=== PATIENT | male | born 1995 | race Caucasian/White ===

== ENCOUNTER → 2023-09-06 16:17 | Outpatient (CLI) | payer OTHER, SELFPAY ==
--- NOTE | 2023-09-06 | DI.MRI.S_ITS ---
PROCEDURE: MR LUMBAR SPINE WO CON INDICATIONS: Spinal stenosis, lumbar region with neurogenic claudication TECHNIQUE: Noncontrast sagittal T1 spin echo and T2 fast echo, sagittal STIR, and T2 fast spin echo through the lumbar spine. In cases with scoliosis, additional coronal T2 fast spin echo may be performed. COMPARISON: SNO Outside Film, CR, XR LUMBAR SPINE 2 OR 3 VIEWS, 07/08/2023, 10:01. FINDINGS: Image quality: Excellent. Alignment and Curvature: There is normal bony alignment. Bone Marrow: Marrow is of normal overall signal. No acute vertebral body compression fractures. Spinal Cord: Conus medullaris terminates at the L1-L2 level. Visualized cord demonstrates normal signal and size. Paraspinous Soft Tissues: No paravertebral masses. T12-L1: Normal appearance. L1-L2: Normal appearance. L2-L3: Normal appearance. L3-L4: Very mild facet arthropathy. No canal stenosis or foraminal stenosis. L4-L5: Mild facet arthropathy. No canal stenosis or foraminal stenosis. L5-S1: Mild facet arthropathy. No canal stenosis. Moderate bilateral foraminal stenosis. There is mild flattening deformity on the exiting left L5 nerve root. IMPRESSION: 1. Mild multilevel lower lumbar facet arthropathy. 2. No canal stenosis. 3. Moderate bilateral foraminal narrowing at L5-S1. Dictated by: Yosef Winn M.D. on 09/06/2023 at 17:27 Approved by: Yosef Winn M.D. on 09/06/2023 at 17:30
== END ==
PROVIDERS: Referring Provider Orthopaedic Surgery Orthopaedic Surgery of the Spine; Visit Provider Orthopaedic Surgery Orthopaedic Surgery of the Spine
DX: M48.062 Spinal stenosis, lumbar region with neurogenic claudication (principal); M48.07 Spinal stenosis, lumbosacral region; M47.816 Spondylosis without myelopathy or radiculopathy, lumbar region; M47.817 Spondylosis without myelopathy or radiculopathy, lumbosacral region
CPT/HCPCS: 72148

== ENCOUNTER 2023-10-17 20:50 | Emergency (ER) | payer OTHER, SELFPAY ==
[2023-10-17 21:03] VITALS: BP 129/73; PULSE 92; RESP 16; TEMP 37; O2SAT 98; BMI 31.1
--- NOTE | 2023-10-17 21:15 | DI.RAD.S_ITS ---
PROCEDURE: XR ACUTE ABDOMEN SERIES INDICATIONS: constipation/ vomiting. TECHNIQUE: One view chest and two views of the abdomen were acquired. COMPARISON: None. FINDINGS: Surgical changes and devices: None. Chest: Lungs are clear. Heart size is normal. No pleural effusions. No pneumoperitoneum. Abdomen: Bowel gas pattern is normal. No suspicious calcifications. Visualized solid organ contours appear normal. Bones: No suspicious bony lesions. IMPRESSION: No acute abnormality. Dictated by: Calvin Little M.D. on 10/17/2023 at 21:39 Approved by: Calvin Little M.D. on 10/17/2023 at 21:39
[2023-10-17 21:44] LABS: Alanine Aminotransferase 18 IU/L (<50); Albumin 4.7 g/dL (3.5-5.0); Albumin Globulin Ratio 1.3 (1.0-2.8); Alkaline Phosphatase 60 U/L (38-126); Aspartate Aminotransferase 23 IU/L (17-59); BUN Creatinine Ratio 17.3 (6-22); Bilirubin Total 0.7 mg/dL (0.2-1.3); Blood Urea Nitrogen 18 mg/dL (9-20); Calcium 9.3 mg/dL (8.4-10.2); Carbon Dioxide 27 mmol/L (22-32); Chloride 101 mmol/L (98-107); Estimated Glomerular Filt Rate > 60 mL/min (>60); Globulin 3.5 g/dL (1.7-4.1); Glucose 103 mg/dL (70-100); HEMOLYSIS < 15 (0-50); Lipase 39 U/L (23-300); Potassium 3.5 mmol/L (3.4-5.1); Sodium 138 mmol/L (137-145); Total Protein 8.2 g/dL (6.3-8.2)
[2023-10-17 21:51] LABS: Add Manual Diff / Slide Review NO; Basophils Absolute Auto 0 /uL (0-100); Basophils Percent Auto 0.3 % (0-2); Eosinophils Absolute Auto 100 /uL (0-450); Eosinophils Percent Auto 0.5 % (2-4); Hematocrit 41.3 % (41-53); Hemoglobin 13.9 g/dL (13.5-17.5); Lymphocytes Absolute Auto 400 /uL (1100-4500); Lymphocytes Percent Auto 3.3 % (25-40); Mean Corpuscular HGB Conc 33.6 % (30-36); Mean Corpuscular Hemoglobin 29.2 PG (26-34); Mean Corpuscular Volume 87.1 fL (80-100); Monocytes Absolute Auto 400 /uL (0-900); Monocytes Percent Auto 3.9 % (3-14); Neutrophils Absolute Auto 10500 /uL (1500-7000); Platelet Count 216 X10^3/uL (150-400); Red Blood Cell Count 4.75 X10^6/uL (4.5-5.9); Red Cell Distribution Width 12.2 % (11.6-14.8); White Blood Cell Count 11.4 X10^3/uL (4.5-11.0)
--- NOTE | 2023-10-18 00:31 | ED_ITS ---
HPI - General Adult General Chief complaint: Abdominal Pain Stated complaint: thinks ABD blockadge Time Seen by Provider: 10/18/23 00:28 Source: patient Mode of arrival: Ambulatory History of Present Illness HPI narrative: 28-year-old gentleman who presents with 48 hours of increasing abdominal pain that he describes as a ?brick sitting in the middle of my belly?. He has not had a bowel movement for 3 days he describes passing no flatus for the last 24 hours and increasing abdominal distention. He is never had any prior abdominal surgeries. He does not describe any overt fevers but today he noticed that he was having episodes of feeling quite hot and then chilled. He describes the abdominal pain as a dull and achy but increasingly severe. He is a low-grade headache and did have 2 episodes of emesis prior to arrival today. He is not complaining of chest pain or palpitations. Related Data Allergies Allergy/AdvReac Type Severity Reaction Status Date / Time No Known Drug Allergies Allergy Verified 10/17/23 21:03 Review of Systems Review of Systems Narrative: Pertinent positive and negative findings as per HPI Patient History Medical History (Updated 10/18/23 @ 04:08 by Nena Wilkins MD) ADHD Social History Smoking Status: Never smoker Smoking Status: Never smoker Substance Use Type: does not use Exam Initial Vital Signs Initial Vital Signs: Vital Signs Temperature 98.6 F 10/17/23 21:03 Pulse Rate 92 H 10/17/23 21:03 Respiratory Rate 16 10/17/23 21:03 Blood Pressure 129/73 10/17/23 21:03 Pulse Oximetry 98 10/17/23 21:03 Oxygen Delivery Method Room Air 10/17/23 21:03 General: Healthy appearing, appears uncomfortable but Able to give a complete and coherent history. Well-nourished well-developed HEENT: Moist mucous membranes, normal sclera with reactive pupils, slightly flushed cheeks Respiratory: Lungs are clear to auscultation, no wheezing no rales no rhonchi. Full and symmetrical air movement Cardiac: Regular rate and rhythm no murmurs no bruits Abdomen: Soft, slightly distended, no bowel tones, no flank pain, no stool in the rectum. Skin: Warm and dry, no rashes Neurologic: Grossly neurologically intact with no obvious asymmetries or abnormalities Extremities: No trauma, well perfused Psych: Cooperative, appropriate insight and affect Course Orders Ordered: ED Orders 10/17/23 21:15 XR acute abdomen series Stat 10/17/23 21:28 Complete Blood Count AUTO DIFF Stat Comprehensive Metabolic Panel Stat Lipase Stat 10/18/23 00:42 CT abdomen pelvis w con Stat 10/18/23 02:19 US abdomen limited Stat Hydromorphone HCl (Hydromorphone 0.5 Mg Inj) 0.5 mg IV Q15MIN PRN PRN Reason: Pain, Ondansetron HCl (Ondansetron 4 Mg Odt) 4 mg PO NOW PRN PRN Reason: Nausea And Vomiting Ondansetron HCl (Ondansetron 4 Mg/2 Ml Inj) 4 mg IV NOW PRN PRN Reason: Nausea And Vomiting Last Admin: 10/18/23 01:06 Dose: 4 mg Documented By: AM Discontinued Medications Ketorolac Tromethamine (Ketorolac 30 Mg/Ml Vial) 15 mg IV NOW ONE Stop: 10/18/23 01:10 Last Admin: 10/18/23 01:22 Dose: 15 mg Documented By: AM Vital Signs Vital signs: Vital Signs - 8 hr 10/17/23 21:03 Temperature 98.6 F Pulse Rate 92 H Respiratory Rate 16 Blood Pressure 129/73 Pulse Oximetry 98 Oxygen Delivery Method Room Air Medical Decision Making Lab Data 10/17/23 21:28 10/17/23 21:28 Labs: Lab Results 10/17/23 Range/Units 21:28 WBC 11.4 H (4.5-11.0) X10^3/uL RBC 4.75 (4.5-5.9) X10^6/uL Hgb 13.9 (13.5-17.5) g/dL Hct 41.3 (41-53) % MCV 87.1 (80-100) fL MCH 29.2 (26-34) PG MCHC 33.6 (30-36) % RDW 12.2 (11.6-14.8) % Plt Count 216 (150-400) X10^3/uL Neut % (Auto) 92.0 H (50-75) % Lymph % (Auto) 3.3 L (25-40) % [place] % (Auto) 3.9 (3-14) % Eos % (Auto) 0.5 L (2-4) % Baso % (Auto) 0.3 (0-2) % Neut # (Auto) 94582 H (8926-3514) /uL Lymph # (Auto) 400 L (3895-5777) /uL [place] # (Auto) 400 (0-900) /uL Eos # (Auto) 100 (0-450) /uL Baso # (Auto) 0 (0-100) /uL Sodium 138 (137-145) mmol/L Potassium 3.5 (3.4-5.1) mmol/L Chloride 101 (98-107) mmol/L Carbon Dioxide 27 (22-32) mmol/L BUN 18 (9-20) mg/dL Creatinine 1.04 (0.66-1.25) mg/dL Estimated GFR > 60 (>60) mL/min BUN/Creatinine Ratio 17.3 (6-22) Glucose 103 H (70-100) mg/dL Calcium 9.3 (8.4-10.2) mg/dL Total Bilirubin 0.7 (0.2-1.3) mg/dL AST 23 (17-59) IU/L ALT 18 (<50) IU/L Alkaline Phosphatase 60 (38-126) U/L Total Protein 8.2 (6.3-8.2) g/dL Albumin 4.7 (3.5-5.0) g/dL Globulin 3.5 (1.7-4.1) g/dL Albumin/Globulin Ratio 1.3 (1.0-2.8) Lipase 39 (23-300) U/L Urine Dip Bedside Urine Glucose Negative Bedside Urine Bilirubin + 1 Bedside Urine Ketone - Negative Urine Specific [place] 1.010 Bedside Urine Occult Blood - Negative Bedside Urine pH 6.0 Bedside Urine Protein - Negative Bedside Urine Urobilinogen - Negative Bedside Urine Nitrite - Negative Bedside Urine Leukocytes - Negative Esterase Point of care testing: Urine Dip Bedside Urine Glucose Negative Bedside Urine Bilirubin + 1 Bedside Urine Ketone - Negative Urine Specific [place] 1.010 Bedside Urine Occult Blood - Negative Bedside Urine pH 6.0 Bedside Urine Protein - Negative Bedside Urine Urobilinogen - Negative Bedside Urine Nitrite - Negative Bedside Urine Leukocytes - Negative Esterase Imaging Data CT scan - abdomen/pelvis: Radiologist's Impression: FINDINGS: Image quality: Diagnostic. Lower Chest: No significant findings. ABDOMEN: Liver: No solid mass. Gallbladder: Small gallstone at the neck of the gallbladder. Biliary ducts: No biliary dilation. Pancreas: No ductal dilation. Spleen: Size is within normal limits. Adrenal Glands: No adrenal nodules. Kidneys and Ureters: No hydronephrosis. No solid mass. No complex renal cystic lesion which requires follow up. Stomach and Bowel: Normal colonic caliber, without significant wall thickening. Normal appendix. Peritoneum: No abnormal intraperitoneal fluid. No free air. Ventral Wall: No hernia. Abdominal Nodes: No retroperitoneal or mesenteric adenopathy by size criteria. Vessels: Aorta and inferior vena cava are normal in size. PELVIS: Pelvic Organs: Unremarkable. Bladder: Unremarkable. Pelvic Nodes: No enlarged lymph nodes. Miscellaneous: No inguinal hernias are seen. Bones: No aggressive osseous abnormality. IMPRESSION: No acute findings within the abdomen or pelvis. Dictated by: Calvin Little M.D. on 10/18/2023 at 1:41 MDM Narrative Medical decision making narrative: CC: Abdominal pain Complicating co-morbidities: ADHD Data collected from: patient Social determinants of health that may influence the patients condition: Currently active [employer] Differential considered: Bowel obstruction, severe constipation, viral syndrome, acute appendicitis Exam documented above, pertinent findings include: Cooperative 28-year-old gentleman with distended abdomen diffusely tender without rebound or guarding. He does not have significant stool in the rectum Lab Test results independently reviewed as above. Pertinent findings: Chemistries are unremarkable Lipase is unremarkable CBC shows mild leukocytosis at 11.4 with neutrophils elevated at 92% Imaging studies independently reviewed: Abdominal x-ray does not show bowel obstruction CT scan shows a small gallstone in the neck of the gallbladder but no mention of significant obstruction or pericholecystic fluid. Remainder of CT is unremarkable with no evidence of acute appendicitis. Ultrasound confirms a small gallstone that is freely mobile with no evidence of pericholecystic fluid or gallbladder wall thickening to suggest acute cholecystitis Treatments: Parenteral Toradol for pain control Re-evaluations: Patient is feeling somewhat better, he does not have an acute surgical abdomen at this time Discussion: 28-year-old gentleman with increasing abdominal pain and bloating. CT scan does not suggest acute appendicitis but did notice a small gallstone at the neck of the gallbladder. Ultrasound shows that there is a small stone but it is mobile and not causing acute problems or acute cholecystitis. There was no evidence of the bowel obstruction. His stomach is quite full any has a moderate amount of stool throughout his colon but is not showing signs of impaction. He does not have stool in the rectal vault. We discussed lab findings, CT and ultrasound findings. Discussed gallstones. Told him that if he did have right upper quadrant abdominal pain particularly after eating fatty meals that he may benefit from a surgical consultation and consideration of elective cholecystectomy. As long as he is pain-free he does not need to take any acute action. We discussed use of MiraLax to see if this might help with some of his bloating and tenderness. At this point questions are answered, he does not need any surgical intervention, additional imaging or lab work and is safe for discharge home Discharge Plan Departure Patient Disposition: Home Clinical Impression: Gallstones Abdominal pain Qualifiers: Abdominal location: generalized Qualified Code(s): R10.84 - Generalized abdominal pain Constipation Qualifiers: Constipation type: unspecified constipation type Qualified Code(s): K59.00 - Constipation, unspecified Instructions: DI for Gallstones Activity Restrictions/Additional Instructions: Thank you for coming in today I did not find any evidence for appendicitis or alternate explanation that would require surgery today. We did find that you have a small gallstone that does not seem to be impacted in the neck of the gallbladder and is not causing acute cholecystitis. If you find that you have right upper quadrant pain particularly associated with eating a high fat meal, you may benefit from consultation with a surgeon to discuss elective cholecystectomy. We also discussed using MiraLax. Using 1 scoop daily to ensure bowel regularity can be helpful in avoiding constipation and pain. If you do not have a bowel movement after an initial dose, please take a 2nd dose this evening, if you still have not had a bowel movement use 2 scoops in the morning and continue in that vein. The worst side effect that you will have is runny nonpainful and non cramping diarrhea. Using 400 mg of ibuprofen (2 [id number] pills) and 1 Tylenol every 6 hours can be very helpful in controlling pain. If you find that you are getting worse or develop any new symptoms, please feel free to return to the emergency department for further evaluation. Referrals: ProviderStacia [Primary Care Provider] - Stand Alone Forms: Patient Portal/API
--- NOTE | 2023-10-18 00:42 | DI.CT.S_ITS ---
PROCEDURE: CT ABDOMEN PELVIS W CON INDICATIONS: abdominal pain TECHNIQUE: After the administration of intravenous contrast, axial sections acquired from the lung bases to the pubic symphysis. Coronal and sagittal reformats were performed. For radiation dose reduction, the following was used: automated exposure control, adjustment of mA and/or kV according to patient size. COMPARISON: None. FINDINGS: Image quality: Diagnostic. Lower Chest: No significant findings. ABDOMEN: Liver: No solid mass. Gallbladder: Small gallstone at the neck of the gallbladder. Biliary ducts: No biliary dilation. Pancreas: No ductal dilation. Spleen: Size is within normal limits. Adrenal Glands: No adrenal nodules. Kidneys and Ureters: No hydronephrosis. No solid mass. No complex renal cystic lesion which requires follow up. Stomach and Bowel: Normal colonic caliber, without significant wall thickening. Normal appendix. Peritoneum: No abnormal intraperitoneal fluid. No free air. Ventral Wall: No hernia. Abdominal Nodes: No retroperitoneal or mesenteric adenopathy by size criteria. Vessels: Aorta and inferior vena cava are normal in size. PELVIS: Pelvic Organs: Unremarkable. Bladder: Unremarkable. Pelvic Nodes: No enlarged lymph nodes. Miscellaneous: No inguinal hernias are seen. Bones: No aggressive osseous abnormality. IMPRESSION: No acute findings within the abdomen or pelvis. Dictated by: Calvin Little M.D. on 10/18/2023 at 1:41 Approved by: Calvin Little M.D. on 10/18/2023 at 1:44
[2023-10-18] MEDS: ONDANSETRON 4 MG/2 ML INJ IV (01:06)
[2023-10-18] MEDS: KETOROLAC 30 MG/ML VIAL 15 MG IV (01:22)
--- NOTE | 2023-10-18 02:19 | DI.US.S_ITS ---
PROCEDURE: US ABDOMEN LIMITED INDICATIONS: CT notes stone at GB neck, eval for cholycystitis TECHNIQUE: Real-time scanning was performed of the abdominal and retroperitoneal organs, with image documentation. COMPARISON: None. FINDINGS: Liver: Liver is normal in size and homogeneous in echotexture. Gallbladder: There are gallstones. No gallbladder wall thickening, pericholecystic fluid or sonographic [place]'s sign. Biliary ducts: Intrahepatic bile ducts are non-dilated. Extrahepatic bile duct caliber measures 4.3 mm. Normal is 6-7 mm or less in diameter, or 10 mm or less post-cholecystectomy. Pancreas: Visualized portions of the pancreas are sonographically normal. Miscellaneous: No free abdominal fluid. IMPRESSION: 1. Cholelithiasis. No ultrasound findings to suggest acute cholecystitis. No significant discrepancy with the weight shifter radiology preliminary report. Dictated by: Any Ma M.D. on 10/18/2023 at 8:39 Approved by: Any Ma M.D. on 10/18/2023 at 8:40
== END 2023-10-18 04:33 | disposition home or self-care (01) ==
PROVIDERS: Emergency Provider Emergency Medicine
DX: R10.84 Generalized abdominal pain (principal); K59.00 Constipation, unspecified
CPT/HCPCS: 36415; 74022; 74177; 76705; 80053; 81003; 83690; 85025; 96374; 96375; 99284; J1170; J1885; J2405

== ENCOUNTER 2024-06-20 10:37 | Day surgery (SDC) | payer OTHER, SELFPAY ==
[2024-06-20 10:55] VITALS: BP 125/68; PULSE 65; RESP 20; TEMP 36.2; O2SAT 97
[2024-06-20] MEDS: LACTATED RINGERS 1,000 ML 42 ML IV (11:10)
--- NOTE | 2024-06-20 11:12 | PM.HP.1 ---
History of Present Illness History of Present Illness Date Patient Seen: 06/20/24 Chief complaint: SDC Narrative: Change in bowel movements primarily with constipation PFSH Medical History (Updated 11/02/23 @ 00:01 by ) ADHD Social History Smoking Status: Never smoker Meds Home Medications and Allergies Home Medications Medication Instructions Recorded Confirmed Type dextroamphetamine-amphetamine ER 1 cap PO QAM 06/20/24 06/20/24 History 10 mg 24hr capsule,extend release Allergies Allergy/AdvReac Type Severity Reaction Status Date / Time No Known Drug Allergies Allergy Verified 10/17/23 21:03 Exam Vital Signs (past 8 hours): - 06/20/24 10:55 Temperature 97.1 F L Pulse Rate 65 Respiratory Rate 20 Blood Pressure 125/68 Pulse Oximetry 97 Oxygen Delivery Method Room Air Oxygen Delivery Method Room Air Narrative Exam Narrative: Oropharynx free of lesions Chest clear to auscultation percussion Cardiac exam reveals no S3 or murmur Assessment & Plan Assessment & Plan narrative: Change in bowel movements need to assess for structural lesion. Colonoscopy to be performed. Risks, benefits, alternatives have been explained. Time-Based Coding :: [TOTAL MINUTES] spent with patient and on the chart (including review of chart, obtaining history, exam, reviewing outside data, placing orders, documenting exam and treatment plan, and counseling patient) on [DATE].
--- NOTE | 2024-06-20 11:13 | P.OP.COLON_ITS ---
Operative Date/Time/Diagnoses Date of procedure: 06/20/24 Pre-op diagnosis: See indication and findings Procedure & Clinicians Study performed: Colonoscopy Indications: Change in bowel movements and rectal bleeding Surgeon: Megan Guan Procedure Notes Procedure in detail: After informed consent was obtained the patient was placed in left lateral decubitus position. The video colonoscope was introduced the rectum slowly advanced cecum. Preparation was good. On slow withdrawal mucosa was carefully examined. The scope was removed. The patient tolerated the procedure well. Blood loss none Complications none Sedation mac Findings 1. Minimal internal hemorrhoids 2. Otherwise negative colonoscopy to cecum There is no structural lesion here to account for his abnormal bowel movements. In addition he probably just had rectal bleeding from a perirectal source given his significant constipation. 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
[2024-06-20 12:05] VITALS: BP 102/60; PULSE 73; RESP 12; TEMP 36.3; O2SAT 97
[2024-06-20 12:10] VITALS: BP 103/59; PULSE 69; RESP 20; TEMP 36.3; O2SAT 96
[2024-06-20 12:15] VITALS: BP 103/61; PULSE 65; RESP 12; TEMP 36.2; O2SAT 97
[2024-06-20 12:21] VITALS: BP 110/66; PULSE 68; RESP 18; TEMP 36.2; O2SAT 96
== END 2024-06-20 12:35 | disposition home or self-care (01) ==
PROVIDERS: Referring Provider Internal Medicine Gastroenterology; Visit Provider Internal Medicine Gastroenterology
PROC: 0DJD8ZZ Inspection of Lower Intestinal Tract, Via Natural or Artificial Opening Endoscopic (ICD-10-PCS; CPT 45378; principal; 2024-06-20 11:30)
DX: K62.5 Hemorrhage of anus and rectum (principal); R19.4 Change in bowel habit; K64.8 Other hemorrhoids
CPT/HCPCS: 45378; J2704

== ENCOUNTER 2025-07-03 09:16 | Emergency (ER) | payer OTHER, SELFPAY ==
[2025-07-03 09:23] VITALS: PULSE 88; O2SAT 99
[2025-07-03 09:24] VITALS: BP 123/80; PULSE 80; RESP 16; TEMP 36.4; O2SAT 100; BMI 25.0
--- NOTE | 2025-07-03 10:01 | DI.RAD.S_ITS ---
PROCEDURE: XR THORACIC SPINE 3V INDICATIONS: thoracic back pain persistent TECHNIQUE: 3 views of the thoracic spine were acquired. COMPARISON: CR, XR THORACIC SPINE 2 VIEWS, 07/08/2023, 9:57. FINDINGS: Bones: No fractures or dislocations. No suspicious bony lesions. 12 pairs of ribs are noted, and appear intact where visualized. Soft tissues: No paravertebral stripe thickening. IMPRESSION: No fracture. No acute osseous lesion. If symptoms and/or clinical suspicion for pathology persists, evaluation with CT or MRI should be considered for further assessment. Dictated by: Kasandra Mooney MD, PhD on 07/03/2025 at 10:22 Approved by: Kasandra Mooney MD, PhD on 07/03/2025 at 10:23
--- NOTE | 2025-07-03 10:02 | ED_ITS ---
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 Presents with 2 weeks of persistent midline thoracic back pain at about T8-T9. Not associated with trauma says he has a history of scoliosis and has had back pain previously. He is not having any difficulty breathing he has not had any cough he has not have any fevers. He is not immunosuppressed he is not diabetic he does not use injection drugs. Says he has not taken anything for his pain. No problems with leg weakness bowel or bladder function Related Data Home Medications ?Medication ?Instructions ?Recorded ?Confirmed dextroamphetamine-amphetamine ER 1 cap PO QAM 06/20/24 06/20/24 10 mg 24hr capsule,extend release Allergies Allergy/AdvReac Type Severity Reaction Status Date / Time No Known Drug Allergies Allergy Verified 10/17/23 21:03 Patient History Medical History (Updated 07/03/25 @ 11:03 by Javier Rodríguez MD) ADHD alcohol intake frequency: holidays/special occasions only Exam Initial Vital Signs Initial Vital Signs: Vital Signs Pulse Rate 88 07/03/25 09:23 Pulse Oximetry 99 07/03/25 09:23 vital signs are reviewed Const General: cooperative and No acute distress HENMT Head: normocephalic and atraumatic Face and sinus: face symmetric Mouth: moist mucous membranes Neck Neck: normal visual inspection, supple and No JVD Chest Chest: normal inspection of the chest Resp Effort & Inspection: normal respiratory effort and able to speak in complete sentences Cardio Rate: regular rate Rhythm: regular rhythm Heart Sounds: no murmurs Back/Spine/Pelvis Other: Minimal tenderness at about T8 without step-off. Neuro General: patient alert, patient oriented x3 and moves all extremities Course Orders Ordered: ED Orders 07/03/25 10:01 XR thoracic spine 3V Stat Vital Signs Vital signs: Vital Signs - 8 hr 07/03/25 11:24 Pulse Rate 79 Pulse Oximetry 81 L MDM - Back Pain/Injury Imaging Data Plain films of thoracic spine: My Impression: Independently reviewed, scoliosis, no lytic lesions no fractures Radiologist's Impression: See radiology report, no acute findings [facility] Narrative Medical decision making narrative: 30-year-old male with a traumatic thoracic back pain. No respiratory symptoms no red flag features. I did obtain imaging because he says his symptoms have been worsening for 2 weeks. He has not been using NSAIDs or [id number] analgesics. Plain films were reassuring as were his exam. Recommended [id number] analgesia and primary care follow up. Indications for return to the emergency department were reviewed Discharge Plan Departure Patient Disposition: Home Clinical Impression: Thoracic back pain Activity Restrictions/Additional Instructions: Emergency department evaluation today is reassuring. It does not appear that your back pain is related to any serious condition requiring further workup today. I recommend you take ibuprofen 600 mg 3 times a day take this with food and take it regularly until you are improved. I also recommend using acetaminophen (Tylenol) 650-1000 mg up to 4 times a day as needed for pain. Prescriptions: No Action dextroamphetamine-amphetamine 10 mg capsule,extended release 24hr 1 cap PO QAM Referrals: ProviderStacia [Primary Care Provider, Family Practice] Stand Alone Forms: Patient Portal/API
[2025-07-03 11:24] VITALS: PULSE 79; O2SAT 81
== END 2025-07-03 11:39 | disposition home or self-care (01) ==
PROVIDERS: Emergency Provider Emergency Medicine
DX: M54.6 Pain in thoracic spine (principal)
CPT/HCPCS: 72072; 99281; 99283